=== PATIENT | female | born 1980 | race Caucasian/White ===

== ENCOUNTER 2024-08-23 05:11 | Emergency (ER) | payer BC, OTHER ==
[2024-08-23] MEDS ORDERED: Lidocaine 1% (PF) 30 ML VIAL ONE (05:46)
[2024-08-23] MEDS ORDERED: Boostrix 0.5 ML (Tdap) VIAL (>/=7 yrs of age) ONE (05:52)
[2024-08-23] MEDS ORDERED: Bacitracin 1 PK ONE (06:24)
== END 2024-08-23 06:35 | disposition home or self-care (01) ==
LOC: NAV ERS 05:11
DX: S61.217A Laceration without foreign body of left little finger without damage to nail, initial encounter (principal); I10 Essential (primary) hypertension; F32.A Depression, unspecified; F41.9 Anxiety disorder, unspecified; W23.0XXA Caught, crushed, jammed, or pinched between moving objects, initial encounter; Z79.899 Other long term (current) drug therapy
CPT/HCPCS: 12001; 90471; 90715